=== PATIENT | female | born 1970 ===

== ENCOUNTER 2021-01-16 19:13 | Emergency (ER) | payer MEDICARE, MEDICAID | END 2021-01-16 19:59 | disposition home or self-care (01) | LOC: ERS 19:13 | DX: Z76.0 Encounter for issue of repeat prescription (principal) | CPT/HCPCS: 99281 ==

== ENCOUNTER 2021-01-17 19:36 | Observation (INO) | payer MEDICARE, MEDICAID ==
[2021-01-17 20:22] LABS: #Basophils 0.1 thou/uL (0.0-0.2); #Eosinphils 0.2 thou/uL (0.0-0.7); #Lymphocytes 2.5 thou/uL (1.20-3.40); #Monocytes 0.4 thou/uL (0.11-0.59); #Neutrophils 5.1 thou/uL (1.40-6.50); %Basophils 0.7 % (0.0-1.0); %Eosinophils 2.7 % (0.0-10.0); %Lymphocytes 29.8 % (21.0-51.0); %Monocytes 4.6 % (0.0-10.0); %Neutrophils 62.2 % (42.0-75.0); Hemoglobin 10.5 g/dL (12.0-16.0); Mean Corpuscular HGB CONC 32.9 g/dL (32.0-36.0); Mean Corpuscular Hemoglobin 22.8 pg (27.0-31.0); Mean Corpuscular Volume 69.2 fL (78.0-98.0); Mean Platelet Volume 8.7 fL (7.4-10.4); Platelet Count 456 thou/uL (130-400); RBC Distribution Width 18.6 % (11.5-14.5); White Blood Cell (WBC) Count 8.2 thou/uL (4.8-10.8)
[2021-01-17 20:41] LABS: MDiff Complete? YES; Microcytosis SLIGHT = 6-15 cells (100X) (0-5/hpf); Platelet Morphology Comment Appears Increased
[2021-01-17 20:48] LABS: ALT (SGPT) 14 U/L (8-55); AST (SGOT) 11 U/L (5-34); Albumin 3.9 g/dL (3.5-5.0); Alkaline Phosphatase 151 U/L (40-110); Anion Gap 16 mmol/L (10-20); BUN (Urea Nitrogen) 14 mg/dL (7.0-18.7); Bilirubin, Total Less than 0.2 mg/dL (0.2-1.2); Calc. Creatinine Clearance 0 mL/min (70-130); Calcium 9.5 mg/dL (7.8-10.44); Carbon Dioxide 25 mmol/L (22-29); Chloride 103 mmol/L (98-107); Globulin 3.4 g/dL (2.4-3.5); Glucose 254 mg/dL (70-105); Potassium 4.1 mmol/L (3.5-5.1); Protein, Total 7.3 g/dL (6.0-8.3); Sodium 140 mmol/L (136-145)
[2021-01-18] MEDS ORDERED: Morphine 4 MG/ML VIAL ONE (00:17)
[2021-01-18] MEDS ORDERED: Ketorolac Tromethamine 30 MG/ML VIAL ONE (00:17)
[2021-01-18] MEDS ORDERED: Ondansetron ODT 4 MG TAB PO PRN (01:49)
[2021-01-18] MEDS ORDERED: Ondansetron PF 4 MG/2 ML Vial IVP PRN (01:49)
[2021-01-18] MEDS ORDERED: Acetaminophen 325 MG TAB PO PRN (01:49)
[2021-01-18] MEDS ORDERED: Dextrose 5% in Water 1,000 ML IV PRN (01:51)
[2021-01-18] MEDS ORDERED: HumaLOG 300 UNITS/3 ML VIAL SC PRN ×2 (01:51)
[2021-01-18] MEDS ORDERED: Dextrose 50% Abboject 50 ML SYRINGE SLOW IVP PRN (01:51)
[2021-01-18] MEDS ORDERED: Nitroglycerin 0.4 MG TAB (25 Tab Bottle) SL PRN (01:52)
[2021-01-18 02:34] LABS: #Basophils 0.1 thou/uL (0.0-0.2); #Eosinphils 0.2 thou/uL (0.0-0.7); #Lymphocytes 2.7 thou/uL (1.20-3.40); #Monocytes 0.4 thou/uL (0.11-0.59); %Basophils 0.7 % (0.0-1.0); %Eosinophils 2.8 % (0.0-10.0); %Lymphocytes 32.4 % (21.0-51.0); %Monocytes 4.7 % (0.0-10.0); %Neutrophils 59.4 % (42.0-75.0); Hemoglobin 10.2 g/dL (12.0-16.0); Mean Corpuscular HGB CONC 32.5 g/dL (32.0-36.0); Mean Corpuscular Hemoglobin 22.8 pg (27.0-31.0); Mean Corpuscular Volume 70.3 fL (78.0-98.0); Mean Platelet Volume 8.9 fL (7.4-10.4); Platelet Count 406 thou/uL (130-400); RBC Distribution Width 18.9 % (11.5-14.5); Red Blood Cell (RBC) Count 4.47 mill/uL (4.20-5.40); White Blood Cell (WBC) Count 8.5 thou/uL (4.8-10.8)
[2021-01-18 02:39] LABS: Hemoglobin A1c 10.5 % (4.0-6.0)
[2021-01-18 02:47] LABS: INR-International Normal Ratio 1.5; Prothrombin Time 18.5 sec (12.0-14.7)
[2021-01-18 02:48] LABS: PTT 44.5 sec (22.9-36.1)
[2021-01-18 02:52] LABS: Phosphorus 3.7 mg/dL (2.3-4.7)
[2021-01-18 02:59] LABS: Iron 24 ug/dL (50-170); Iron Binding Capacity, Total 344 mcg/dL (265-497)
[2021-01-18 03:02] LABS: Anion Gap 14 mmol/L (10-20); BUN (Urea Nitrogen) 14 mg/dL (7.0-18.7); Calc. Creatinine Clearance 0 mL/min (70-130); Calcium 9.7 mg/dL (7.8-10.44); Carbon Dioxide 24 mmol/L (22-29); Cardiac Risk 6.9 (Less than 4.5); Chloride 106 mmol/L (98-107); Cholesterol 228 mg/dl (< 200 Desired); Glucose 221 mg/dL (70-105); HDL Cholesterol 33 mg/dL (>60 Neg Risk); Iron 26 ug/dL (50-170); Iron Binding Capacity, Total 364 mcg/dL (265-497); LDL Cholesterol, Calculated 148 mg/dL; Sodium 140 mmol/L (136-145); Triglycerides 234 mg/dL (Less than 150)
[2021-01-18 04:45] LABS: Troponin I 0.012 ng/mL (< 0.028)
[2021-01-18] MEDS ORDERED: Acetaminophen 500 MG TAB ONE (04:58)
[2021-01-18 07:07] VITALS: BMI 35.4
[2021-01-18 07:18] LABS: Troponin I 0.011 ng/mL (< 0.028)
[2021-01-18] MEDS ORDERED: metFORMIN 500 MG TAB PO SCH ×2 (08:00→17:00)
[2021-01-18] MEDS: carBAMazepine 200 MG TAB PO SCH ×2 (08:07→16:20)
[2021-01-18] MEDS: Gabapentin 100 MG CAP PO SCH ×2 (08:09→16:19)
[2021-01-18] MEDS ORDERED: Lisinopril 10 MG TAB PO SCH (09:00)
[2021-01-18] MEDS ORDERED: DULoxetine 30 MG CAP PO SCH (09:00)
[2021-01-18] MEDS ORDERED: Regadenoson 0.4 MG/5 ML SYRINGE ONE (09:19)
[2021-01-18 14:45] LABS: SARS-CoV-2 PCR by NAA Not Detected (NotDetected)
[2021-01-18 15:39] LABS: Amphetamine Not Detected (NotDetected); Barbiturates Screen Not Detected (NotDetected); Benzodiazepine Screen Not Detected (NotDetected); Cocaine Metabolite Screen Not Detected (NotDetected); Methadone Not Detected (NotDetected); Methamphetamine Not Detected (NotDetected); Opiate Screen Detected (NotDetected); Oxycodone Screen Not Detected (NotDetected); Phencyclidine (PCP) Not Detected (NotDetected); THC/Cannabinoid Screen Not Detected (NotDetected); Tricyclic Screen Not Detected (NotDetected)
[2021-01-18] MEDS ORDERED: FLU VACC QS2021-22(6MOS UP)/PF 60 MCG/0.5 ML SYRINGE IM ONE (16:00)
[2021-01-18 16:56] VITALS: BP 128/93; TEMP 98.3
[2021-01-18] MEDS ORDERED: Warfarin Sodium 2.5 MG TAB PO SCH (17:00)
[2021-01-18] MEDS ORDERED: Pravastatin Sodium 20 MG TAB PO SCH (21:00)
[2021-01-18] MEDS ORDERED: NPH, Human Insulin Isophane 300 UNIT/3 ML VIAL SC SCH (21:00)
[2021-01-19] MEDS ORDERED: Polyethylene Glycol 3350 17 GM Packet PO SCH (09:00)
[2021-01-19] MEDS ORDERED: NPH, Human Insulin Isophane 300 UNIT/3 ML VIAL SC SCH (09:00)
== END 2021-01-18 16:43 ==
LOC: ERS 19:36 → 2SE 01-18 01:49
PROVIDERS: ADMIT Family Medicine; ATTEND Family Medicine
DX: R07.89 Other chest pain (principal); D50.9 Iron deficiency anemia, unspecified; I25.2 Old myocardial infarction; E11.9 Type 2 diabetes mellitus without complications; I10 Essential (primary) hypertension; I48.91 Unspecified atrial fibrillation; J44.9 Chronic obstructive pulmonary disease, unspecified; M19.90 Unspecified osteoarthritis, unspecified site; N17.9 Acute kidney failure, unspecified; Z87.891 Personal history of nicotine dependence; Z79.01 Long term (current) use of anticoagulants; Z79.4 Long term (current) use of insulin; Z79.84 Long term (current) use of oral hypoglycemic drugs; Z79.899 Other long term (current) drug therapy; Z88.8 Allergy status to other drugs, medicaments and biological substances; Z20.822 Contact with and (suspected) exposure to COVID-19
CPT/HCPCS: 70450; 71045; 78452; 80048; 80053; 80061; 80306; 82728; 82962 ×2; 83036; 83540; 83550; 83690; 83735; 83880; 84100; 84443; 84484 ×3; 85025 ×2; 85610; 85730; 93005; 93017; 96374; 96375; 99285; A9500; G0378 ×2; U0003; U0005; 36415; 36416; J1815; J1885; J2270; J2785

== ENCOUNTER 2021-01-24 14:01 | Emergency (ER) | payer MEDICARE, MEDICAID ==
[2021-01-24] MEDS ORDERED: Meclizine HCl 25 MG TAB ONE (14:32)
== END 2021-01-24 15:15 | disposition home or self-care (01) ==
LOC: ERS 14:01
DX: R42 Dizziness and giddiness (principal); E78.5 Hyperlipidemia, unspecified; E78.00 Pure hypercholesterolemia, unspecified; E11.9 Type 2 diabetes mellitus without complications; I10 Essential (primary) hypertension; I48.91 Unspecified atrial fibrillation; J44.9 Chronic obstructive pulmonary disease, unspecified; Z87.891 Personal history of nicotine dependence; Z79.01 Long term (current) use of anticoagulants; Z79.899 Other long term (current) drug therapy; Z79.84 Long term (current) use of oral hypoglycemic drugs
CPT/HCPCS: 99283